=== PATIENT | female | born 1955 | race Caucasian/White ===

== ENCOUNTER 2019-01-03 06:57 | Day surgery (SDC) | payer BC ==
[2019-01-03] MEDS ORDERED: LIDOCAINE 2% (SDV) 5 ML INJ (08:38)
[2019-01-03] MEDS ORDERED: PROPOFOL 40 ML (08:38)
[2019-01-03] MEDS ORDERED: ONDANSETRON 4 MG INJ IV (09:00)
== END 2019-01-03 14:39 | disposition home or self-care (01) ==
LOC: GIL 06:57
DX: Z12.11 Encounter for screening for malignant neoplasm of colon (principal); K64.8 Other hemorrhoids; K44.9 Diaphragmatic hernia without obstruction or gangrene; K21.0 Gastro-esophageal reflux disease with esophagitis; K29.60 Other gastritis without bleeding; I10 Essential (primary) hypertension; J45.909 Unspecified asthma, uncomplicated; E66.9 Obesity, unspecified; Z68.35 Body mass index [BMI] 35.0-35.9, adult
CPT/HCPCS: 43239; 88305; 88312